=== PATIENT | male | born 1970 | race Hispanic/Latino ===

== ENCOUNTER 2018-10-29 17:00 | Emergency (ER) | payer SELFPAY ==
[~2018-10-29] VITALS: Ht 167.6 cm; Wt 87.1 kg
== END 2018-10-29 17:37 | disposition home or self-care (01) ==
LOC: FSED 17:00
DX: S00.83XA Contusion of other part of head, initial encounter (principal); S00.01XA Abrasion of scalp, initial encounter; W22.8XXA Striking against or struck by other objects, initial encounter; Y99.0 Civilian activity done for income or pay
CPT/HCPCS: 99283